=== PATIENT | male | born 1970 | race Caucasian/White ===

== ENCOUNTER 2017-08-29 18:31 | Emergency (ER) | payer OTHER ==
[2017-08-29] MEDS ORDERED: Cephalexin 500 MG Cap ONE (18:50)
--- NOTE | 2017-08-29 19:40 | EDM.PDOC ---
ED HPI GENERAL MEDICAL PROBLEM - General Chief Complaint: Lower Extremity Injury/Pain Stated Complaint: SKIN INFECTION Time Seen by Provider: 08/29/17 18:45 Source of Information: Reports: Patient History Limitations: Reports: No Limitations - History of Present Illness INITIAL COMMENTS - FREE TEXT/NARRATIVE: Patient is a 47 year old man who has an infected insect bite on his right lower pfeiffer. He has a prescription for cephalexin but has not filled it and cannot find a pharmacy. It is a little sore and red with some purulent drainage. No fever or chills and no other complaints. Onset: Gradual Onset Date: 08/22/17 Onset Time: 08:00 Duration: Week(s): (1) Location: Reports: Lower Extremity, Right Quality: Reports: Ache Severity: Mild Improves with: Reports: None Worsens with: Reports: None Context: Reports: Other (Insect bite.) Associated Symptoms: Reports: No Other Symptoms - Related Data Allergies Allergy/AdvReac Type Severity Reaction Status Date / Time No Known Allergies Allergy Verified 08/29/17 18:52 Review of Systems - Review of Systems Review Of Systems: ROS reveals no pertinent complaints other than HPI. ED EXAM, GENERAL - Physical Exam Exam: See Below Exam Limited By: No Limitations General Appearance: Alert, WD/WN, No Apparent Distress Eye Exam: Bilateral Eye: EOMI, Normal Fundi, Normal Inspection Ears: Normal External Exam, Normal Canal, Hearing Grossly Normal, Normal TMs Ear Exam: Bilateral Ear: Auricle Normal, Canal Normal, TM normal Nose: Normal Inspection, Normal Mucosa, No Blood Throat/Mouth: Normal Inspection, Normal Lips, Normal Teeth, Normal Gums, Normal Oropharynx, Normal Voice, No Airway Compromise Head: Atraumatic, Normocephalic Neck: Normal Inspection, Supple, Non-Tender, Full Range of Motion Respiratory/Chest: No Respiratory Distress, Lungs Clear, Normal Breath Sounds, No Accessory Muscle Use, Chest Non-Tender Cardiovascular: Normal Peripheral Pulses, Regular Rate, Rhythm, No Edema, No Gallop, No JVD, No Murmur, No Rub GI/Abdominal: Normal Bowel Sounds, Soft, Non-Tender, No Organomegaly, No Distention, No Abnormal Bruit, No Mass Back Exam: Normal Inspection, Full Range of Motion, NT Extremities: Redness (Quarter sized area of redness with central purulent area on the right lower leg.) Neurological: Sensory/Motor Deficit Psychiatric: Normal Affect, Normal Mood Skin Exam: Rash (As described above in extremities exam.) Lymphatic: No Adenopathy Course - Vital Signs Text/Narrative:: Uneventful ED course. He was given Cephalexin 500 mg po bid X 10 days, #20, no refills, warm pack lower extremities, elevate and recheck with PCP in [place] in 2-3 days if not getting better. Departure - Departure Time of Disposition: 19:43 Disposition: Home, Self-Care 01 Condition: Good Clinical Impression: Insect bite of leg, infected - Discharge Information Forms: ED Department Discharge
== END 2017-08-29 18:58 | disposition home or self-care (01) ==
LOC: LB.ED 18:31
DX: S80.861A Insect bite (nonvenomous), right lower leg, initial encounter (principal); W57.XXXA Bitten or stung by nonvenomous insect and other nonvenomous arthropods, initial encounter
CPT/HCPCS: 99283; A9270-GY